=== PATIENT | male | born 1980 ===

== ENCOUNTER 2017-10-02 04:44 | Emergency (ER) | payer BC ==
[2017-10-02 05:10] VITALS: BP 155/106; PULSE 127; RESP 20; TEMP 97.5; O2SAT 98
[2017-10-02] MEDS ORDERED: Amoxicillin-Clav 875-125 mg Tab PO STA (05:26)
[2017-10-02] MEDS ORDERED: Oxycodone/Acetaminophen 5/325 mg Tab PO ONE (05:26)
--- NOTE | 2017-10-02 05:57 | ED PDOC ---
HPI: Dental Pain/Injury Time Seen by Provider: 10/02/17 05:10 Chief Complaint (Nursing): Dental Pain Chief Complaint (Provider): Dental Pain History Per: Patient History/Exam Limitations: no limitations Onset/Duration Of Symptoms: Days (x3) Current Symptoms Are (Timing): Still Present Additional Complaint(s): 37 y/o male presents to the emergency department complaining of right-sided dental pain, ongoing for 2-3 days. Patient states near the site of pain, a tooth is breaking apart, and he noticed pus today. No fevers or chills. No medications for symptom relief were taken prior to arrival. Patient has yet to see a dentist. PMD: None Past Medical History Reviewed: Historical Data, Nursing Documentation, Vital Signs Vital Signs: Last Vital Signs Temp 97.5 F L 10/02/17 05:06 Pulse 127 H 10/02/17 05:06 Resp 20 10/02/17 05:06 BP 155/106 H 10/02/17 05:06 Pulse Ox 98 10/02/17 05:06 - Medical History PMH: Anxiety, Bipolar Disorder, Depression, HIV, HTN, Hypercholesterolemia - Surgical History Surgical History: No Surg Hx Denies: Appendectomy - Family History Family History: States: Unknown Family Hx - Immunization History Hx Tetanus Toxoid Vaccination: Yes Hx Influenza Vaccination: Yes Hx Pneumococcal Vaccination: Yes - Home Medications Home Medications: Ambulatory Orders Medication Instructions Recorded Divalproex [Depakote ER] 500 mg PO DAILY 07/08/17 Emtricitabine/Tenofovir (Tdf) 1 each PO BID 07/08/17 [Truvada 100 mg-150 mg Tablet] Mv,Min10/Folic Acid/D3/Ala/Lut 1 tab PO DAILY 07/08/17 [Strovite One Caplet] Amoxicillin/Clavulanate [Augmentin 1 tab PO BID #14 tab 10/02/17 875 MG-125 MG] - Allergies Allergies/Adverse Reactions: Allergies Allergy/AdvReac Type Severity Reaction Status Date / Time sulfamethoxazole Allergy unknown Verified 10/02/17 05:05 [From Bactrim] trimethoprim [From Bactrim] Allergy unknown Verified 10/02/17 05:05 Review of Systems ROS Statement: Except As Marked, All Systems Reviewed And Found Negative Constitutional: Negative for: Fever, Chills ENT: Positive for: Other (right lower jaw and dental pain) Physical Exam - Reviewed Nursing Documentation Reviewed: Yes Vital Signs Reviewed: Yes - Physical Exam Appears: Positive for: Non-toxic, No Acute Distress Head Exam: Positive for: ATRAUMATIC, NORMAL INSPECTION, NORMOCEPHALIC Skin: Positive for: Normal Color ENT: Positive for: Pharynx Is (normal), Other (2 broken teeth noted at the right lower jaw, 3rd premolar and 4th molar tooth. (+) cavity on 2nd molar). Negative for: Pharyngeal Erythema, Tonsillar Swelling Neck: Positive for: Normal, Painless ROM, Supple Neurologic/Psych: Positive for: Alert, Oriented - ECG O2 Sat by Pulse Oximetry: 98 (RA) Pulse Ox Interpretation: Normal Medical Decision Making Medical Decision Making: Initial Impression: Dental abscess, dental cavities, broken teeth Time: 05:26 Initial Plan: --Augmentin 1 tab PO --Percocet 1 tab PO Patient is medically stable. Will d/c with prescription for Augmentin. Counseled patient regarding the importance of follow up with dentist. There is agreement to discharge plan. Return if symptoms persist or worsen. Scribe Attestation: Documented by Chica Mendoza, acting as a scribe for Rebecca Bruno MD Provider Scribe Attestation: All medical record entries made by the Scribe were at my direction and personally dictated by me. I have reviewed the chart and agree that the record accurately reflects my personal performance of the history, physical exam, medical decision making, and the department course for this patient. I have also personally directed, reviewed, and agree with the discharge instructions and disposition. Disposition - Clinical Impression Clinical Impression: Dental caries, Dental abscess, Broken tooth Counseled Patient/Family Regarding: Diagnosis, Need For Followup, Rx Given - Disposition Referrals: [facility] [Outside] Сергей Barrientos DMD [Staff Provider] - Disposition: Routine/Home Disposition Time: 05:47 Condition: GOOD Additional Instructions: Take your medications as instructed. Follow up with dentist in 3 days. Prescriptions: Amoxicillin/Clavulanate [Augmentin 875 MG-125 MG] 1 tab PO BID #14 tab Instructions: Dental Abscess (ED) Forms: [facility] (Beninese)
== END 2017-10-02 05:55 | disposition home or self-care (01) ==
LOC: H.ER 04:44
DX: K04.7 Periapical abscess without sinus (principal)

== ENCOUNTER 2019-01-06 03:23 | Emergency (ER) | payer MEDICAID ==
[2019-01-06 04:00] VITALS: RESP 18; TEMP 98; BMI 24.3
[2019-01-06] MEDS ORDERED: Sodium Chloride 0.9% 1,000 ML IV STA (04:08)
[2019-01-06 04:34] LABS: BASO % 0.4 % (0.0-2.0); EOS % 1.4 % (0.0-4.0); HEMOGLOBIN 11.5 g/dL (12.0-18.0); LYMPH # 0.4 K/uL (1.0-4.3); LYMPH % 15.4 % (20.0-40.0); MEAN CORPUSCULAR HEMOGLOBIN 26.9 pg (27.0-31.0); MEAN CORPUSCULAR HGB CONC 32.8 g/dL (33.0-37.0); MEAN PLATELET VOLUME 8.1 fl (7.2-11.7); MONO # 0.5 K/uL (0.0-0.8); MONO % 16.6 % (0.0-10.0); NEUT # 1.8 K/uL (1.8-7.0); NEUT % 66.2 % (50.0-75.0); NRBC % 0.1 % (0.0-0.0); RBC 4.27 Mil/uL (4.40-5.90); WHITE BLOOD COUNT 2.8 K/uL (4.8-10.8)
[2019-01-06 04:53] LABS: BLOOD UREA NITROGEN 12 mg/dl (9-20); CALCIUM 9.2 mg/dL (8.4-10.2); GFR NON-AFRICAN AMERICAN > 60
--- NOTE | 2019-01-06 05:41 | ED PDOC ---
HPI: Male Pain Time Seen by Provider: 01/06/19 03:43 Chief Complaint (Nursing): Male Genitourinary Chief Complaint (Provider): Male Genitourinary History Per: Patient History/Exam Limitations: no limitations Onset/Duration Of Symptoms: Persistent Current Symptoms Are (Timing): Still Present Additional Complaint(s): 38 year old male with a history of HIV (not on HAART) presents to the ED for evaluation of multiple complaints. Patient states his insurance was recently reinstated and that he has been of [facility] for months. He reports an abscess on his abdomen and another on his chest. Patient also states that he has discharge from the shaft of his penis in addition to feeling weak and dehydrated. Offers no other complaints. PMD: Dr. Meri Keller Past Medical History Reviewed: Historical Data, Nursing Documentation, Vital Signs Vital Signs: Last Vital Signs Temp 98.0 F 01/06/19 03:37 Pulse 121 H 01/06/19 03:37 Resp 18 01/06/19 03:37 BP 118/75 01/06/19 03:37 Pulse Ox 99 01/06/19 03:37 Primary Care Physician: Meri Keller RN [employer] - Medical History PMH: Anxiety, Bipolar Disorder, Depression, HIV, HTN, Hypercholesterolemia, Hyperlipidemia Denies: Diabetes, Hepatitis, Chronic Kidney Disease, Seizures, Sexually Transmitted Disease - Surgical History Surgical History: Tonsillectomy Denies: Appendectomy - Family History Family History: States: Unknown Family Hx - Social History Current smoker - smoking cessation education provided: Yes (occasionally) Drugs: Other (GHB) - Immunization History Hx Tetanus Toxoid Vaccination: Yes Hx Influenza Vaccination: Yes Hx Pneumococcal Vaccination: Yes - Home Medications Home Medications: Ambulatory Orders Medication Instructions Recorded Clotrimazole [Mycelex Leslye] 10 mg MT 5XD 14 Days louie 12/16/18 Clindamycin [Cleocin] 300 mg PO TID 10 Days cap 01/06/19 - Allergies Allergies/Adverse Reactions: Allergies Allergy/AdvReac Type Severity Reaction Status Date / Time No Known Drug Allergies Allergy Unknown NKDA/NONE Verified 01/06/19 03:36 Review of Systems ROS Statement: Except As Marked, All Systems Reviewed And Found Negative Constitutional: Positive for: Weakness Genitourinary Male: Positive for: Penile Discharge (from shaft) Skin: Positive for: Other (abscesses on abdomen and chest) Physical Exam - Reviewed Nursing Documentation Reviewed: Yes Vital Signs Reviewed: Yes - Physical Exam Appears: Positive for: Uncomfortable (extremely nervous) Head Exam: Positive for: ATRAUMATIC, NORMAL INSPECTION, NORMOCEPHALIC Skin: Positive for: Normal Color, Warm, Dry Eye Exam: Positive for: EOMI, Normal appearance, PERRL Neck: Positive for: Normal, Painless ROM, Supple Cardiovascular/Chest: Positive for: Tachycardia (with regular rhythm ), Other (in grown follicle in the middle of chest) Gastrointestinal/Abdominal: Positive for: Other (1 1/2 cm in diameter abscess on abdomen. Patient will not allow access for physical exam) Male Genital Exam: Positive for: normal genitalia, other (healing scars with minimal discharge from the shaft). Negative for: erythema (or swelling), urethral discharge Back: Positive for: Normal Inspection. Negative for: L CVA Tenderness, R CVA Tenderness Extremity: Positive for: Normal ROM (x 4). Negative for: Deformity Neurological/Psych: Positive for: Awake, Alert, Normal Tone, Oriented (x 3). Negative for: Motor/Sensory Deficits - Laboratory Results Result Diagrams: 01/06/19 04:23 01/06/19 04:23 - ECG O2 Sat by Pulse Oximetry: 99 (RA) Pulse Ox Interpretation: Normal Medical Decision Making Medical Decision Makin:07 A&P: History of HIV with abscess, dehydration and chronic discharge from penile shaft Not concerned for STI Patient will not allow for I & D of abscess. Instead, recommend Clindamycin and Motrin. Strongly encouraged patient to follow up with PMD. Orders: --Clindamycin 600 mg in NS 50 ml IVPB --NS IV 1,000 mls 6:00 Patient's HR improved Advised rest, fluids, and urgent followup with PMD regarding HAART Scribe Attestation: Documented by Fariba Natalia, acting as a scribe forShelleyhi Edmond MD Provider Scribe Attestation: All medical record entries made by the Scribe were at my direction and personally dictated by me. I have reviewed the chart and agree that the record accurately reflects my personal performance of the history, physical exam, medical decision making, and the department course for this patient. I have also personally directed, reviewed, and agree with the discharge instructions and disposition. Disposition - Clinical Impression Clinical Impression: Abscess - Patient ED Disposition Is Patient to be Admitted: No Counseled Patient/Family Regarding: Studies Performed, Diagnosis, Need For Followup, Rx Given - Disposition Referrals: Bruno Hernandez MD [Staff Provider] - Meri Keller RN, [employer] [Primary Care Provider] - Disposition: Routine/Home Disposition Time: 06:00 Condition: IMPROVED Prescriptions: Clindamycin [Cleocin] 300 mg PO TID 10 Days cap Instructions: Skin Abscess Forms: [facility] (Niuean)
[2019-01-06 06:05] VITALS: BP 111/78; PULSE 102; O2SAT 98
== END 2019-01-06 06:04 | disposition home or self-care (01) ==
LOC: H.ER 03:23
DX: L02.211 Cutaneous abscess of abdominal wall (principal); R36.9 Urethral discharge, unspecified; Z21 Asymptomatic human immunodeficiency virus [HIV] infection status; E78.00 Pure hypercholesterolemia, unspecified; F17.200 Nicotine dependence, unspecified, uncomplicated; F31.9 Bipolar disorder, unspecified; F41.9 Anxiety disorder, unspecified; I10 Essential (primary) hypertension
CPT/HCPCS: 80048; 85025; 99284; J7030